=== PATIENT | male | born 1955 ===

== ENCOUNTER 2017-01-01 15:09 | Inpatient (IN) | payer MEDICAID, OTHER ==
[2017-01-01 15:09] VITALS: BMI 22.6
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
[2017-01-01 18:00] LABS: BASO # 0.1 K/uL (0.0-0.2); EOS # 0.2 K/uL (0.0-0.7); EOS % 2.8 % (0.0-4.0); HEMATOCRIT 35.7 % (35.0-51.0); LYMPH # 1.2 K/uL (1.0-4.3); LYMPH % 21.6 % (20.0-40.0); MEAN CELL VOLUME 90.7 fL (80.0-94.0); MEAN CORPUSCULAR HEMOGLOBIN 30.1 pg (27.0-31.0); MEAN CORPUSCULAR HGB CONC 33.2 g/dL (33.0-37.0); MEAN PLATELET VOLUME 8.1 fL (7.2-11.7); MONO # 0.4 K/uL (0.0-0.8); MONO % 7.9 % (0.0-10.0); RED CELL DISTRIBUTION WIDTH 14.3 % (11.5-14.5); WHITE BLOOD COUNT 5.6 K/uL (4.8-10.8)
[2017-01-01] MEDS ORDERED: Oxycodone/Acetaminophen 5/325 mg Tab PO PRN (18:06)
[2017-01-01 18:08] LABS: RBC URINE 1 /hpf (0-3); URINE BACTERIA RARE (<OCC); URINE BILIRUBIN NEGATIVE (NEGATIVE); URINE BLOOD NEGATIVE (NEGATIVE); URINE COLOR Yellow (YELLOW); URINE GLUCOSE (UA) NORMAL (Normal); URINE KETONE NEGATIVE (NEGATIVE); URINE LEUKOCYTE ESTERASE NEG Leu/uL (Negative); URINE PROTEIN NEGATIVE (NEGATIVE); URINE UROBILINOGEN NORMAL mg/dL (0.2-1.0); WBC URINE < 1 /hpf (0-5)
[2017-01-01 18:11] LABS: CHLORIDE 99 mmol/L (98-107); POTASSIUM 3.8 mmol/L (3.6-5.2); SODIUM 141 mmol/L (132-148)
[2017-01-01 18:13] LABS: GFR AFRICAN-AMERICAN > 60
[2017-01-01 18:14] LABS: ALB/GLOB RATIO 1.2 (1.0-2.1); ALKALINE PHOSPHATASE 67 U/L (38-126); ALT/SGPT 14 U/L (21-72); AST/SGOT 19 U/L (17-59); BILIRUBIN,TOTAL 0.4 mg/dL (0.2-1.3); BLOOD UREA NITROGEN 21 mg/dL (9-20); CALCIUM 8.8 mg/dl (8.6-10.4); CARBON DIOXIDE 29 mmol/L (22-30); GLUCOSE,RANDOM 120 mg/dL (75-110); TOTAL PROTEIN 6.7 g/dL (6.3-8.3)
[2017-01-01 18:15] LABS: ALCOHOL SERUM < 10 mg/dl (0-10)
[2017-01-01] MEDS ORDERED: Sodium Chloride 0.9% 1,000 ML ONE (18:32)
--- NOTE | 2017-01-01 18:32 | RAD ---
HISTORY: Admission COMPARISON: Chest x-ray performed 11/01/16 TECHNIQUE: Chest, one view. FINDINGS: LUNGS: Hyperinflation may be seen in the setting of COPD. No focal consolidation. Please note that chest x-ray has limited sensitivity for the detection of pulmonary masses. PLEURA: No significant pleural effusion identified. No definite pneumothorax . CARDIOVASCULAR: Heart size appears within normal limits. Atherosclerotic calcifications of the aorta. OSSEOUS STRUCTURES: Bilateral rib fracture deformities appear chronic. Degenerative changes of the spine and shoulders. VISUALIZED UPPER ABDOMEN: Unremarkable. OTHER FINDINGS: None. IMPRESSION: Hyperinflation may be seen in the setting of COPD.
[2017-01-01] MEDS: Sodium Chloride 0.9% 1,000 ML IV SCH (18:35)
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
[2017-01-02] MEDS: Sodium Chloride 0.9% 1,000 ML IV SCH ×3 (04:00→22:50)
[2017-01-02] MEDS: Enoxaparin 40 mg Syringe SC SCH (10:44)
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
[2017-01-03] MEDS: Enoxaparin 40 mg Syringe SC SCH (10:28)
[2017-01-03] MEDS: Sodium Chloride 0.9% 1,000 ML IV SCH (15:55)
--- NOTE | 2017-01-03 22:07 | CARD ---
APPROVED REPORT EKG Measurement Heart [id number] <Conclusion> Normal sinus rhythm Septal infarct, age undetermined Abnormal ECG
[2017-01-04] MEDS: Sodium Chloride 0.9% 1,000 ML IV SCH ×3 (01:29→23:56)
[2017-01-04] MEDS: Enoxaparin 40 mg Syringe SC SCH (10:14)
[2017-01-04 11:54] LABS: CHLORIDE 98 mmol/L (98-107); POTASSIUM 3.6 mmol/L (3.6-5.2); SODIUM 139 mmol/L (132-148)
[2017-01-04 11:57] LABS: BLOOD UREA NITROGEN 16 mg/dL (9-20); CALCIUM 8.5 mg/dl (8.6-10.4); CARBON DIOXIDE 27 mmol/L (22-30); GFR AFRICAN-AMERICAN > 60; GLUCOSE,RANDOM 90 mg/dL (75-110)
[2017-01-04 11:58] LABS: MAGNESIUM 1.4 mg/dL (1.6-2.3)
[2017-01-04 12:12] LABS: BASO % 0.8 % (0.0-2.0); EOS # 0.2 K/uL (0.0-0.7); EOS % 4.3 % (0.0-4.0); HEMATOCRIT 36.5 % (35.0-51.0); LYMPH # 1.3 K/uL (1.0-4.3); LYMPH % 23.1 % (20.0-40.0); MEAN CELL VOLUME 90.1 fL (80.0-94.0); MEAN CORPUSCULAR HEMOGLOBIN 30.9 pg (27.0-31.0); MEAN CORPUSCULAR HGB CONC 34.3 g/dL (33.0-37.0); MEAN PLATELET VOLUME 8.5 fL (7.2-11.7); MONO # 0.5 K/uL (0.0-0.8); MONO % 7.9 % (0.0-10.0); NRBC % 0.1 % (0.0-2.0); WHITE BLOOD COUNT 5.8 K/uL (4.8-10.8)
--- NOTE | 2017-01-04 16:49 | CP.PCM.PN ---
Subjective - Date & Time of Evaluation Date of Evaluation: 01/04/17 Time of Evaluation: 12:00 - Subjective Subjective: NAD, for subacute disposition Objective - Vital Signs/Intake and Output Vital Signs (last 24 hours): Temp Pulse Resp BP Pulse Ox 98.4 F 85 20 110/72 95 01/04/17 15:00 01/04/17 15:00 01/04/17 15:00 01/04/17 15:00 01/04/17 15:00 Intake and Output: 01/04/17 01/04/17 06:59 18:59 Intake Total 1340 Output Total 800 Balance 540 - Medications Medications: Current Medications Acetaminophen (Tylenol 325mg Tab) 650 mg PO Q6 PRN PRN Reason: Fever >100.4 F Chlordiazepoxide (Librium) 25 mg PO BID PRN PRN Reason: Anxiety Last Admin: 01/03/17 17:24 Dose: 25 mg Docusate Sodium (Colace) 100 mg PO BID [facility] Last Admin: 01/04/17 10:14 Dose: 100 mg Enoxaparin Sodium (Lovenox) 40 mg SC DAILY [facility] Last Admin: 01/04/17 10:14 Dose: 40 mg Folic Acid (Folic Acid) 1 mg PO DAILY [facility] Last Admin: 01/04/17 10:14 Dose: 1 mg Sodium Chloride (Sodium Chloride 0.9%) 1,000 mls @ 50 mls/hr IV .Q20H [facility] Last Admin: 01/04/17 11:06 Dose: Not Given Levetiracetam (Keppra) 500 mg PO BID [facility] Last Admin: 01/04/17 10:13 Dose: 500 mg Ondansetron HCl (Zofran Inj) 4 mg IVP Q6 PRN PRN Reason: Nausea/Vomiting Sucralfate (Carafate Tab) 1 gm PO BID [facility] Last Admin: 01/04/17 10:13 Dose: 1 gm Thiamine HCl (Vitamin B1 Tab) 100 mg PO DAILY [facility] Last Admin: 01/04/17 10:13 Dose: 100 mg - Labs Labs: 01/04/17 11:20 01/04/17 11:20 - Constitutional Appears: Non-toxic - Head Exam Head Exam: ATRAUMATIC - Eye Exam Eye Exam: EOMI - ENT Exam ENT Exam: Mucous Membranes Moist - Neck Exam Neck Exam: absent: Lymphadenopathy, Thyromegaly - Respiratory Exam Respiratory Exam: Clear to Ausculation Bilateral. absent: Rales - Cardiovascular Exam Cardiovascular Exam: REGULAR RHYTHM, Murmur - GI/Abdominal Exam GI & Abdominal Exam: Normal Bowel Sounds. absent: Organomegaly - Rectal Exam Rectal Exam: Deferred - Extremities Exam Extremities Exam: Normal Capillary Refill. absent: Calf Tenderness - Neurological Exam Neurological Exam: Alert - Psychiatric Exam Psychiatric exam: Normal Affect - Skin Skin Exam: Dry Assessment and Plan (1) Alcohol abuse with alcohol-induced disorder Status: Acute (2) Alcohol abuse with intoxication delirium Status: Acute
[2017-01-05] MEDS: Enoxaparin 40 mg Syringe SC SCH (09:51)
[2017-01-05] MEDS: Sodium Chloride 0.9% 1,000 ML IV SCH (09:53)
[2017-01-06] MEDS: Sodium Chloride 0.9% 1,000 ML IV SCH (03:55)
[2017-01-06] MEDS: Enoxaparin 40 mg Syringe SC SCH (10:17)
[2017-01-06 14:47] VITALS: RESP 20
--- NOTE | 2017-01-06 17:49 | CP.PCM.PN ---
Subjective - Date & Time of Evaluation Date of Evaluation: 01/06/17 Time of Evaluation: 14:00 - Subjective Subjective: still in the hosp? can be d/c Objective - Vital Signs/Intake and Output Vital Signs (last 24 hours): Temp Pulse Resp BP Pulse Ox 98.6 F 90 20 101/66 95 01/06/17 16:00 01/06/17 16:00 01/06/17 16:00 01/06/17 16:00 01/06/17 16:00 Intake and Output: 01/06/17 01/06/17 06:59 18:59 Intake Total 600 Balance 600 - Medications Medications: Current Medications Acetaminophen (Tylenol 325mg Tab) 650 mg PO Q6 PRN PRN Reason: Fever >100.4 F Chlordiazepoxide (Librium) 25 mg PO BID PRN PRN Reason: Anxiety Last Admin: 01/03/17 17:24 Dose: 25 mg Docusate Sodium (Colace) 100 mg PO BID [facility] Last Admin: 01/06/17 10:16 Dose: 100 mg Enoxaparin Sodium (Lovenox) 40 mg SC DAILY [facility] Last Admin: 01/06/17 10:17 Dose: 40 mg Folic Acid (Folic Acid) 1 mg PO DAILY [facility] Last Admin: 01/06/17 10:15 Dose: 1 mg Levetiracetam (Keppra) 500 mg PO BID [facility] Last Admin: 01/06/17 10:16 Dose: 500 mg Ondansetron HCl (Zofran Inj) 4 mg IVP Q6 PRN PRN Reason: Nausea/Vomiting Sucralfate (Carafate Tab) 1 gm PO BID [facility] Last Admin: 01/06/17 10:16 Dose: 1 gm Thiamine HCl (Vitamin B1 Tab) 100 mg PO DAILY [facility] Last Admin: 01/06/17 10:17 Dose: 100 mg - Labs Labs: 01/04/17 11:20 01/04/17 11:20 - Constitutional Appears: Non-toxic - Head Exam Head Exam: ATRAUMATIC - Eye Exam Eye Exam: EOMI - ENT Exam ENT Exam: Mucous Membranes Moist - Neck Exam Neck Exam: absent: Lymphadenopathy, Thyromegaly - Respiratory Exam Respiratory Exam: Clear to Ausculation Bilateral - Cardiovascular Exam Cardiovascular Exam: REGULAR RHYTHM - GI/Abdominal Exam GI & Abdominal Exam: Normal Bowel Sounds. absent: Organomegaly - Rectal Exam Rectal Exam: Deferred - Extremities Exam Extremities Exam: Normal Capillary Refill. absent: Calf Tenderness - Neurological Exam Neurological Exam: Alert, Oriented x3 - Skin Skin Exam: Dry Assessment and Plan (1) Alcohol abuse with alcohol-induced disorder Status: Acute (2) Alcohol abuse with intoxication delirium Status: Acute (3) Debility Status: Chronic
[2017-01-07] MEDS: Enoxaparin 40 mg Syringe SC SCH (10:39)
--- NOTE | 2017-01-07 22:36 | CP.PCM.PN ---
Subjective - Date & Time of Evaluation Date of Evaluation: 01/07/17 Time of Evaluation: 15:00 - Subjective Subjective: NAD awaiting disposition Objective - Vital Signs/Intake and Output Vital Signs (last 24 hours): Temp Pulse Resp BP Pulse Ox 98.3 F 90 20 95/60 L 98 01/07/17 15:00 01/07/17 20:55 01/07/17 15:00 01/07/17 15:00 01/07/17 15:00 Intake and Output: 01/07/17 01/08/17 18:59 06:59 Intake Total 720 Output Total 600 Balance 120 - Medications Medications: Current Medications Acetaminophen (Tylenol 325mg Tab) 650 mg PO Q6 PRN PRN Reason: Fever >100.4 F Chlordiazepoxide (Librium) 25 mg PO BID PRN PRN Reason: Anxiety Last Admin: 01/07/17 10:40 Dose: 25 mg Docusate Sodium (Colace) 100 mg PO BID [facility] Last Admin: 01/07/17 18:00 Dose: 100 mg Enoxaparin Sodium (Lovenox) 40 mg SC DAILY [facility] Last Admin: 01/07/17 10:39 Dose: 40 mg Folic Acid (Folic Acid) 1 mg PO DAILY [facility] Last Admin: 01/07/17 10:40 Dose: 1 mg Levetiracetam (Keppra) 500 mg PO BID [facility] Last Admin: 01/07/17 18:10 Dose: 500 mg Ondansetron HCl (Zofran Inj) 4 mg IVP Q6 PRN PRN Reason: Nausea/Vomiting Sucralfate (Carafate Tab) 1 gm PO BID [facility] Last Admin: 01/07/17 18:00 Dose: 1 gm Thiamine HCl (Vitamin B1 Tab) 100 mg PO DAILY [facility] Last Admin: 01/07/17 10:40 Dose: 100 mg - Labs Labs: 01/04/17 11:20 01/04/17 11:20 - Constitutional Appears: Non-toxic - Head Exam Head Exam: ATRAUMATIC - Eye Exam Eye Exam: EOMI - ENT Exam ENT Exam: Mucous Membranes Moist - Neck Exam Neck Exam: absent: Lymphadenopathy, Thyromegaly - Respiratory Exam Respiratory Exam: Clear to Ausculation Bilateral. absent: Rales - Cardiovascular Exam Cardiovascular Exam: REGULAR RHYTHM, Murmur - GI/Abdominal Exam GI & Abdominal Exam: Normal Bowel Sounds. absent: Organomegaly - Rectal Exam Rectal Exam: Deferred - Extremities Exam Extremities Exam: Normal Capillary Refill. absent: Calf Tenderness - Neurological Exam Neurological Exam: Alert, Oriented x3 - Psychiatric Exam Psychiatric exam: Normal Affect - Skin Skin Exam: Dry Assessment and Plan (1) Alcohol abuse with alcohol-induced disorder Status: Acute (2) Alcohol abuse with intoxication delirium Status: Acute (3) Debility Status: Chronic
[2017-01-08 09:13] VITALS: TEMP 98.2
[2017-01-08] MEDS: Enoxaparin 40 mg Syringe SC SCH (10:10)
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
[2017-01-08 16:20] VITALS: BP 92/58; PULSE 88; O2SAT 96
--- NOTE | 2017-01-08 17:52 | CP.PCM.PN ---
Subjective - Date & Time of Evaluation Date of Evaluation: 01/08/17 Time of Evaluation: 17:52 - Subjective Subjective: AWAKE, CONFUSED, NO SOB OR CHEST PAINS. Objective - Vital Signs/Intake and Output Vital Signs (last 24 hours): Temp Pulse Resp BP Pulse Ox 98.2 F 88 20 92/58 L 96 01/08/17 16:00 01/08/17 16:46 01/08/17 16:00 01/08/17 16:00 01/08/17 16:00 Intake and Output: 01/08/17 01/08/17 06:59 18:59 Intake Total 600 500 Balance 600 500 - Medications Medications: Current Medications Acetaminophen (Tylenol 325mg Tab) 650 mg PO Q6 PRN PRN Reason: Fever >100.4 F Chlordiazepoxide (Librium) 25 mg PO BID PRN PRN Reason: Anxiety Last Admin: 01/07/17 10:40 Dose: 25 mg Docusate Sodium (Colace) 100 mg PO BID [facility] Last Admin: 01/08/17 10:09 Dose: 100 mg Enoxaparin Sodium (Lovenox) 40 mg SC DAILY [facility] Last Admin: 01/08/17 10:10 Dose: 40 mg Folic Acid (Folic Acid) 1 mg PO DAILY [facility] Last Admin: 01/08/17 10:09 Dose: 1 mg Levetiracetam (Keppra) 500 mg PO BID [facility] Last Admin: 01/08/17 10:10 Dose: 500 mg Ondansetron HCl (Zofran Inj) 4 mg IVP Q6 PRN PRN Reason: Nausea/Vomiting Sucralfate (Carafate Tab) 1 gm PO BID [facility] Last Admin: 01/08/17 10:09 Dose: 1 gm Thiamine HCl (Vitamin B1 Tab) 100 mg PO DAILY [facility] Last Admin: 01/08/17 10:10 Dose: 100 mg - Labs Labs: 01/04/17 11:20 01/04/17 11:20 Assessment and Plan - Assessment and Plan (Free Text) Assessment: Patient is seen and examined. Awake, confused, no sob or chest pains. [facility] bed [facility]. D/W DR Laurent, will discharge today to the facility.
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
== END 2017-01-08 21:00 | DRG 751 ==
LOC: C.ER 15:09 → C.9E 17:41 → C.3T 18:22 → OBSVTOIN 01-03 15:49
PROVIDERS: ADMIT Internal Medicine Cardiovascular Disease; ATTEND Internal Medicine Cardiovascular Disease
DX: F10.121 Alcohol abuse with intoxication delirium (principal); I10 Essential (primary) hypertension; R26.81 Unsteadiness on feet; I69.390 Apraxia following cerebral infarction; G40.909 Epilepsy, unspecified, not intractable, without status epilepticus; J45.909 Unspecified asthma, uncomplicated; I25.10 Atherosclerotic heart disease of native coronary artery without angina pectoris; E78.00 Pure hypercholesterolemia, unspecified; R53.81 Other malaise; F41.9 Anxiety disorder, unspecified; F17.210 Nicotine dependence, cigarettes, uncomplicated; Y90.0 Blood alcohol level of less than 20 mg/100 ml; Z59.0 Homelessness; Z95.5 Presence of coronary angioplasty implant and graft